=== PATIENT | female | born 1960 | race Caucasian/White ===

== ENCOUNTER → 2016-12-04 | Outpatient (CLI) | payer BC, OTHER | LOC: RAD 07:58 | PROVIDERS: ATTEND Family Medicine | DX: Z12.31 Encounter for screening mammogram for malignant neoplasm of breast (principal) ==

== ENCOUNTER → 2017-01-19 | Emergency (ER) | payer BC, OTHER ==
[~2017-01-19] VITALS: Ht 154.9 cm; Wt 58.0 kg
[~2017-01-19] MED LIST: KETOROLAC 30 MG/ML (TORADOL) 1 ML VIAL IV ONE; ONDANSETRON 2 MG/ML (Z0FRAN) 2 ML VIAL IV ONE; SODIUM CHLORIDE 250 ML IV PRN; SODIUM CHLORIDE FLUSH 10 ML SYR IV PRN; SODIUM CHLORIDE FLUSH 3 ML SYR IV PRN
[2017-01-19 14:55] VITALS: BP 163/78
[2017-01-19 16:09] LABS: BASOPHILS % (AUTO) 0 % (0-2); EOSINOPHILS # (AUTO) 0.1 10^3uL; EOSINOPHILS % (AUTO) 3 % (0-4); LYMPHOCYTES # (AUTO) 1.1 X10^3; MEAN CORPUSCULAR HEMOGLOBIN 28.6 PG (26.0-34.0); MEAN CORPUSCULAR HGB CONC 33.9 g/dL (31.0-37.0); MEAN CORPUSCULAR VOLUME 84 FL (80-100); MEAN PLATELET VOLUME 9.8 FL (6.0-9.5); MONOCYTES # (AUTO) 0.6 X10^3; MONOCYTES % (AUTO) 13 % (3-11); NEUTROPHILS # (AUTO) 2.6 X10^3; NEUTROPHILS % (AUTO) 59 % (51-67); PLATELET COUNT 201 10^3uL (150-450)
[2017-01-19 16:27] LABS: ALKALINE PHOSPHATASE 191 U/L (38-126); BUN/CREATININE RATIO 20 (10-20); CREATINE KINASE 53 U/L (30-135); TOTAL PROTEIN 7.1 g/dL (6.4-8.5)
[2017-01-20 15:43] LABS: HEPATITIS A ANTIBODY IGM Negative; HEPATITIS B CORE ABY IGM Negative; HEPATITIS B SURFACE ANTIGEN C Negative
== END | disposition home or self-care (01) ==
LOC: ED 14:50
DX: M54.89 Other dorsalgia (principal); R74.8 Abnormal levels of other serum enzymes; R74.0 Nonspecific elevation of levels of transaminase and lactic acid dehydrogenase [LDH]
CPT/HCPCS: 36415; 71010; 80053; 80074; 82550; 82553; 83880; 84484; 85025; 85610; 85730; 86308; 96361; 96374; 96375; 99284; J1885; J2405; J7030; 99281